=== PATIENT | female | born 1940 | race Caucasian/White ===

== ENCOUNTER → 2016-08-03 | Outpatient (CLI) | payer MEDICARE, OTHER ==
[~2016-08-03] MED LIST: ASPIR LOW81 MG PO; BLOOD PRESSURE; COZAAR25 MG PO; DIURETIC; FUROSEMIDE20 MG PO; IPRATROPIUM BROM3 M1 IH; LEVAQUIN 5500 MG/TA1 PO; LEVOTHYROXINE; LEVOTHYROXINE0.1 MG PO; LOPRESSOR 550 MG/TAB PO; MACROBID 100 M100 MG PO; TRAMADOL 50 MG TAB PO; TUSS PO; VIBRAMYCIN100 MG PO; XARELTO20 MG PO; ZITHROMAX Z PA250 MG PO
== END ==
LOC: LAB 16:06
DX: I10 Essential (primary) hypertension (principal); R07.89 Other chest pain; E03.9 Hypothyroidism, unspecified; E11.9 Type 2 diabetes mellitus without complications; N30.00 Acute cystitis without hematuria

== ENCOUNTER → 2016-08-31 | Outpatient (CLI) | payer MEDICARE, OTHER | LOC: VAS 15:58 | DX: R07.9 Chest pain, unspecified (principal); I10 Essential (primary) hypertension ==

== ENCOUNTER 2016-11-14 09:30 | Emergency (ER) | payer MEDICARE, OTHER ==
[~2016-11-14] VITALS: Ht 170.2 cm; Wt 77.3 kg
[~2016-11-14 09:30] MED LIST changes: -LOPRESSOR 550 MG/TAB PO; -TRAMADOL 50 MG TAB PO; -XARELTO20 MG PO
[2016-11-14] MEDS ORDERED: LOPRESSOR 550 MG/TAB PO (12:00)
[2016-11-14] MEDS ORDERED: XARELTO20 MG PO (12:00)
[2016-11-14 12:02] VITALS: BP 126/92
== END 2016-11-14 12:19 | disposition home or self-care (01) ==
LOC: ED 09:30
DX: R00.2 Palpitations (principal); I48.91 Unspecified atrial fibrillation; R53.83 Other fatigue; I10 Essential (primary) hypertension; E11.9 Type 2 diabetes mellitus without complications; E03.9 Hypothyroidism, unspecified; Z87.891 Personal history of nicotine dependence

== ENCOUNTER 2017-01-05 22:20 | Emergency (ER) | payer MEDICARE, OTHER ==
[~2017-01-05] VITALS: Ht 167.6 cm; Wt 86.2 kg
[~2017-01-05 22:20] MED LIST changes: +LOPRESSOR 550 MG/TAB PO; +XARELTO20 MG PO
[2017-01-06] MEDS ORDERED: TRAMADOL 50 MG TAB PO (00:12)
[2017-01-06 00:21] VITALS: BP 168/88
== END 2017-01-06 00:21 | disposition home or self-care (01) ==
LOC: ED 22:20
DX: J02.9 Acute pharyngitis, unspecified (principal); H92.03 Otalgia, bilateral; I10 Essential (primary) hypertension

== ENCOUNTER 2017-01-08 19:22 | Emergency (ER) | payer MEDICARE, OTHER ==
[~2017-01-08] VITALS: Ht 167.6 cm; Wt 85.9 kg
[~2017-01-08 19:22] MED LIST changes: +TRAMADOL 50 MG TAB PO
[2017-01-08 20:48] VITALS: BP 168/87
== END 2017-01-08 20:48 | disposition home or self-care (01) ==
LOC: ED 19:22
DX: B34.9 Viral infection, unspecified (principal); R05 Cough; R09.89 Other specified symptoms and signs involving the circulatory and respiratory systems; I10 Essential (primary) hypertension; J45.909 Unspecified asthma, uncomplicated; I48.91 Unspecified atrial fibrillation

== ENCOUNTER 2017-10-22 05:14 | Emergency (ER) | payer MEDICARE, OTHER ==
[~2017-10-22] VITALS: Ht 170.2 cm; Wt 77.3 kg
[2017-10-22 06:20] LABS: URINE APPEARANCE CLOUDY; URINE BILIRUBIN NEGATIVE (NEGATIVE); URINE BLOOD 50 ery/uL (NEGATIVE); URINE COLOR YELLOW; URINE GLUCOSE NEGATIVE (NEGATIVE); URINE KETONE NEGATIVE (NEGATIVE); URINE LEUKOCYTE ESTERASE 2+ (NEGATIVE); URINE NITRATE NEGATIVE (NEGATIVE); URINE PROTEIN(semi-quant) 1+ mg/dL (NEGATIVE); URINE UROBILINOGEN NORMAL (NORMAL); URINE WBC >50 /hpf (0-3)
[2017-10-22 06:21] LABS: URINE MUCUS PRESENT (NOT PRESENT)
[2017-10-22 06:30] VITALS: BP 150/84
== END 2017-10-22 06:30 | disposition home or self-care (01) ==
LOC: ED 05:14
PROVIDERS: Family Medicine
DX: R33.9 Retention of urine, unspecified (principal); N39.0 Urinary tract infection, site not specified; Z87.442 Personal history of urinary calculi; Z79.82 Long term (current) use of aspirin

== ENCOUNTER 2017-10-25 16:30 | Emergency (ER) | payer MEDICARE, OTHER ==
[~2017-10-25] VITALS: Ht 170.2 cm; Wt 77.3 kg
[2017-10-25] MEDS ORDERED: CEPHALEXIN500 M1 PO (16:38)
[2017-10-25 17:34] LABS: BASO # 0.1 (0.02-0.10); EOS # 0.2 (0.04-0.40); EOS % 1.4 % (1.0-5.0); HEMATOCRIT 43.5 % (37.0-47.0); HEMOGLOBIN 14.4 g/dL (12.5-16.0); LYMPH# 3.2 (1.50-4.00); MEAN CELL VOLUME 90 fl (78-100); MEAN CORPUSCULAR HEMOGLOBIN 30 pg (27-31); MEAN CORPUSCULAR HGB CONC 33 g/dL (33-37); MEAN PLATELET VOLUME 9.3 fl (7.4-10.4); MONO # 1.2 (0.20-0.80); PLATELET COUNT 283 K/mm3 (130-400); RED BLOOD COUNT 4.84 M/mm3 (4.10-5.30); RED CELL DISTRIBUTION WIDTH 14.6 % (11.5-14.5); WHITE BLOOD COUNT 12.7 K/mm3 (4.8-10.8)
[2017-10-25 17:47] LABS: BUN/CREATININE RATIO 22.7 (6.0-26.0); CALCIUM 9.2 mg/dL (8.4-10.2); POTASSIUM 3.7 mmol/L (3.6-5.0); TOTAL BILIRUBIN 0.4 mg/dL (0.2-1.3); TOTAL PROTEIN 8.5 g/dL (6.3-8.2)
[2017-10-25 18:12] LABS: URINE APPEARANCE HAZY; URINE BILIRUBIN NEGATIVE (NEGATIVE); URINE BLOOD TRACE (NEGATIVE); URINE COLOR YELLOW; URINE GLUCOSE NEGATIVE (NEGATIVE); URINE KETONE NEGATIVE (NEGATIVE); URINE LEUKOCYTE ESTERASE 1+ (NEGATIVE); URINE NITRATE NEGATIVE (NEGATIVE); URINE PROTEIN(semi-quant) TRACE mg/dL (NEGATIVE); URINE UROBILINOGEN NORMAL (NORMAL)
[2017-10-25 18:13] LABS: URINE WBC 16-30 /hpf (0-3)
[2017-10-25 18:19] VITALS: BP 165/82
[2017-10-26] MEDS ORDERED: CEPHALEXIN500 M1 PO (08:09)
== END 2017-10-25 18:19 | disposition home or self-care (01) ==
LOC: ED 16:30
PROVIDERS: Physician Assistant
DX: R33.9 Retention of urine, unspecified (principal); N39.0 Urinary tract infection, site not specified; E11.9 Type 2 diabetes mellitus without complications; I10 Essential (primary) hypertension; Z87.891 Personal history of nicotine dependence; Z79.82 Long term (current) use of aspirin; Z87.442 Personal history of urinary calculi

== ENCOUNTER → 2017-10-26 | Outpatient (CLI) | payer MEDICARE, OTHER ==
[~2017-10-26] VITALS: Ht 170.2 cm; Wt 77.3 kg
[~2017-10-26] MED LIST changes: +CEPHALEXIN500 M1 PO
[2017-10-26 08:09] VITALS: BP 180/96
--- NOTE | 2017-10-26 08:20 | NUR ---
NO NEED FOR UA COLLECTION WITH LUNA PLACEMENT PER KATRINA HERNANDEZ.
--- NOTE | 2017-10-26 08:45 | NUR ---
16FR LUNA CATH PLACED PER STERILE PROCEDURE. 275CC CLEAR YELLOW URINE RETURNED. CATH CARE REVIEWED WITH PATIENT. SHE REPORTS HAVING A CATHETER BEFORE AND IS FAMILIAR WITH THE PROCESS. SHE HAS AN APPT TODAY WITH HER PCP AT 1030 FOR F/U OF CATH PLACEMENT. ADDITIONAL STAT LOCK, LEG BAG CAP, AND ALCOHOL PADS PROVIDED TO PATIENT.
== END ==
LOC: AMSURD 07:37
DX: Z46.6 Encounter for fitting and adjustment of urinary device (principal); Z96.0 Presence of urogenital implants

== ENCOUNTER 2018-08-19 10:30 | Outpatient (RCR) | payer MEDICARE, OTHER ==
[2017-10-26 08:09] VITALS: BP 180/96
== END 2018-08-19 11:00 | disposition home or self-care (01) ==
LOC: PT 10:30
DX: M79.601 Pain in right arm (principal)
CPT/HCPCS: G8985-GP

== ENCOUNTER 2018-11-21 12:16 | Emergency (ER) | payer MEDICARE ==
[~2018-11-21] VITALS: Ht 167.6 cm; Wt 77.3 kg
[2018-11-21] MEDS ORDERED: FUROSEMIDE20 MG PO (12:27)
[2018-11-21 13:02] LABS: D-DIMER 0.44 mg/L FEU (0.15-0.50)
[2018-11-21 13:51] VITALS: BP 171/94
== END 2018-11-21 13:52 | disposition home or self-care (01) ==
LOC: ED 12:16
PROVIDERS: Nurse Practitioner Primary Care
DX: S76.912A Strain of unspecified muscles, fascia and tendons at thigh level, left thigh, initial encounter (principal); E11.9 Type 2 diabetes mellitus without complications; I10 Essential (primary) hypertension; E07.9 Disorder of thyroid, unspecified; E78.5 Hyperlipidemia, unspecified; Z90.49 Acquired absence of other specified parts of digestive tract; Z87.442 Personal history of urinary calculi; Z98.49 Cataract extraction status, unspecified eye; Z87.891 Personal history of nicotine dependence; Z79.82 Long term (current) use of aspirin
CPT/HCPCS: J1885

== ENCOUNTER → 2018-11-28 | Outpatient (CLI) | payer MEDICARE ==
[2018-11-21 13:51] VITALS: BP 171/94
== END ==
LOC: VAS 08:44 → RAD 09:00 → VAS 09:00
DX: M79.605 Pain in left leg (principal)

== ENCOUNTER 2018-12-02 20:49 | Emergency (ER) | payer MEDICARE ==
[~2018-12-02] VITALS: Ht 172.7 cm; Wt 81.8 kg
== END 2018-12-02 21:14 | disposition home or self-care (01) ==
LOC: ED 20:49
DX: M25.562 Pain in left knee (principal); I10 Essential (primary) hypertension; E11.9 Type 2 diabetes mellitus without complications; E78.5 Hyperlipidemia, unspecified; Z87.891 Personal history of nicotine dependence; Z79.82 Long term (current) use of aspirin; W22.03XA Walked into furniture, initial encounter; Y92.009 Unspecified place in unspecified non-institutional (private) residence as the place of occurrence of the external cause

== ENCOUNTER 2020-10-18 18:58 | Emergency (ER) | payer MEDICARE, OTHER ==
[2020-10-18] MEDS ORDERED: GOOD NEIGHBOR325 MG PO (19:39)
[2020-10-18] MEDS ORDERED: LEVOTHYROXINE112 MCG PO (19:39)
[2020-10-18] MEDS ORDERED: LOSARTAN POTASS25 MG PO (19:40)
[2020-10-18] MEDS ORDERED: GLUCOTROL 5M5 MG/TAB PO (19:40)
[2020-10-18 20:03] LABS: ALBUMIN 3.8 g/dL (3.4-4.8); POTASSIUM 3.7 mmol/L (3.5-5.1); SODIUM 140 mmol/L (136-145)
[2020-10-18 20:04] LABS: CALCIUM 9.2 mg/dL (8.3-10.5)
[2020-10-18 20:05] LABS: GLUCOSE 201 mg/dL (65-105)
[2020-10-18 20:06] LABS: TOTAL PROTEIN 8.1 g/dL (6.2-8.1)
[2020-10-18 20:07] LABS: CARBON DIOXIDE 21 mmol/L (23-31); EOS # 0.1 (0.04-0.40); HEMATOCRIT 44.9 % (37.0-47.0); HEMOGLOBIN 14.7 g/dL (12.5-16.0); MEAN CELL VOLUME 89 fl (78-100); MEAN CORPUSCULAR HEMOGLOBIN 29 pg (27-31); MEAN CORPUSCULAR HGB CONC 33 g/dL (33-37); MEAN PLATELET VOLUME 9.7 fl (7.4-10.4); MONO # 1.3 (0.20-0.80); NEU # 8.1 (1.40-6.50); PLATELET COUNT 258 K/mm3 (130-400); RED BLOOD COUNT 5.04 M/mm3 (4.10-5.30); RED CELL DISTRIBUTION WIDTH 14.9 % (11.5-14.5); TOTAL BILIRUBIN 0.5 mg/dL (0.2-1.2); WHITE BLOOD COUNT 13.6 K/mm3 (4.8-10.8)
[2020-10-18 20:11] LABS: AST-SGOT 28 U/L (5-34)
[2020-10-18 20:12] LABS: ALT/SGPT 38 U/L (0-55)
[2020-10-18 20:14] LABS: PARTIAL THROMBOPLASTIN TIME 23.2 SECONDS (21.0-32.0); PROTHROMBIN TIME 10.7 SECONDS (9.0-12.0)
[2020-10-18 20:41] LABS: TROPONIN-I < 0.03 ng/mL (<0.030)
[2020-10-18 21:34] LABS: D-DIMER 0.59 mg/L FEU (0.15-0.50)
[2020-10-18 22:22] LABS: PH-URINE 5.5 (5.0 - 8.0); URINE APPEARANCE CLOUDY; URINE BILIRUBIN NEGATIVE (NEGATIVE); URINE BLOOD 50 ery/uL (NEGATIVE); URINE COLOR YELLOW; URINE GLUCOSE NEGATIVE (NEGATIVE); URINE KETONE NEGATIVE (NEGATIVE); URINE LEUKOCYTE ESTERASE 2+ (NEGATIVE); URINE NITRATE NEGATIVE (NEGATIVE); URINE PROTEIN(semi-quant) 1+ mg/dL (NEGATIVE); URINE UROBILINOGEN NORMAL (NORMAL); URINE WBC >50 /hpf (0-3)
[2020-10-18] MEDS ORDERED: CIPRO250 M1 PO (23:38)
[2020-10-18 23:46] VITALS: BP 152/94
== END 2020-10-18 23:46 | disposition left against medical advice (07) ==
LOC: ED 18:58
PROVIDERS: Nurse Practitioner
DX: I48.92 Unspecified atrial flutter (principal); N39.0 Urinary tract infection, site not specified; E11.9 Type 2 diabetes mellitus without complications; I10 Essential (primary) hypertension; I48.91 Unspecified atrial fibrillation; Z20.822 Contact with and (suspected) exposure to COVID-19; Z90.89 Acquired absence of other organs; Z90.49 Acquired absence of other specified parts of digestive tract; Z87.891 Personal history of nicotine dependence; Z88.2 Allergy status to sulfonamides; Z79.82 Long term (current) use of aspirin; Z79.84 Long term (current) use of oral hypoglycemic drugs; Z79.899 Other long term (current) drug therapy; Z79.890 Hormone replacement therapy
CPT/HCPCS: J0696; J7030; Q9967

== ENCOUNTER 2020-12-09 16:06 | Emergency (ER) | payer MEDICARE, OTHER ==
[~2020-12-09 16:06] MED LIST changes: +CIPRO250 M1 PO; +GLUCOTROL 5M5 MG/TAB PO; +GOOD NEIGHBOR325 MG PO; +LEVOTHYROXINE112 MCG PO; +LOSARTAN POTASS25 MG PO
[2020-12-09] MEDS ORDERED: WARFARIN SOD5 MG PO (16:15)
[2020-12-09] MEDS ORDERED: ATORVASTATIN CA20 MG PO (16:16)
[2020-12-09] MEDS ORDERED: METOPROLOL SUCC25 M1 PO (16:16)
[2020-12-09 16:52] LABS: BASO # 0.02 (0.02-0.10); HEMATOCRIT 45.8 % (37.0-47.0); LYMPH# 1.35 (1.50-4.00); MEAN CELL VOLUME 88 fl (78-100); MEAN CORPUSCULAR HEMOGLOBIN 29 pg (27-31); MEAN CORPUSCULAR HGB CONC 33 g/dL (33-37); MEAN PLATELET VOLUME 10.7 fl (7.4-10.4); MONO # 1.01 (0.20-0.80); NEU # 3.17 (1.40-6.50); PLATELET COUNT 183 K/mm3 (130-400); RED CELL DISTRIBUTION WIDTH 14.3 % (11.5-14.5); WHITE BLOOD COUNT 5.6 K/mm3 (4.8-10.8)
[2020-12-09 17:02] LABS: ALBUMIN 3.8 g/dL (3.4-4.8); POTASSIUM 3.9 mmol/L (3.5-5.1); SODIUM 135 mmol/L (136-145)
[2020-12-09 17:03] LABS: CALCIUM 8.4 mg/dL (8.3-10.5)
[2020-12-09 17:04] LABS: GLUCOSE 170 mg/dL (65-105); TOTAL PROTEIN 8.2 g/dL (6.2-8.1)
[2020-12-09 17:05] LABS: CARBON DIOXIDE 21 mmol/L (23-31)
[2020-12-09 17:06] LABS: TOTAL BILIRUBIN 0.6 mg/dL (0.2-1.2)
[2020-12-09 17:10] LABS: AST-SGOT 48 U/L (5-34)
[2020-12-09 17:11] LABS: ALT/SGPT 51 U/L (0-55)
[2020-12-09 17:27] LABS: TROPONIN-I < 0.03 ng/mL (<0.030)
[2020-12-09 17:37] LABS: D-DIMER 0.13 mg/L FEU (0.15-0.50)
[2020-12-09 18:05] LABS: PROTHROMBIN TIME 20.2 SECONDS (9.0-12.0)
[2020-12-09 18:54] VITALS: BP 190/98
== END 2020-12-09 18:49 | disposition home or self-care (01) ==
LOC: ED 16:06
PROVIDERS: Nurse Practitioner Family
DX: U07.1 COVID-19 (principal); E11.9 Type 2 diabetes mellitus without complications; I48.91 Unspecified atrial fibrillation; E03.9 Hypothyroidism, unspecified; E66.9 Obesity, unspecified; Z79.01 Long term (current) use of anticoagulants; Z79.890 Hormone replacement therapy; Z79.82 Long term (current) use of aspirin; Z79.84 Long term (current) use of oral hypoglycemic drugs; Z68.26 Body mass index [BMI] 26.0-26.9, adult
CPT/HCPCS: J7030